=== PATIENT | female | born 1995 | race Caucasian/White ===

== ENCOUNTER 2019-08-30 09:04 | Outpatient (RCR) | payer OTHER, SELFPAY ==
[2019-08-30 09:48] LABS: Hematocrit 34.7 % (37.0-47.0); Hemoglobin 11.5 g/dL (12.0-15.0)
[2019-08-30 10:39] LABS: HIV 1/2 Ab P24 Ag Result Negative (Negative)
[2019-08-30] MEDS: RHO(D) IMMUNE GLOBULIN 300 MCG SYRINGE IM (13:41)
[2019-08-31 09:17] LABS: Rapid Plasma Reagin Non-Reactive (NonReactive)
== END 2019-11-28 23:59 | disposition home or self-care (01) ==
LOC: ANHLAB 09:04
PROVIDERS: Visit Provider Obstetrics & Gynecology
DX: Z36.89 Encounter for other specified antenatal screening (principal); Z29.13 Encounter for prophylactic Rho(D) immune globulin; O36.0990 Maternal care for other rhesus isoimmunization, unspecified trimester, not applicable or unspecified; Z3A.00 Weeks of gestation of pregnancy not specified
CPT/HCPCS: 36415; 36430; 85014; 85018; 86592; 86703; 86850; 90384; 96372; G0432; J2790

== ENCOUNTER 2019-11-01 06:51 | Observation (INO) | payer OTHER, MEDICAID, SELFPAY ==
[2019-11-01 07:30] VITALS: BMI 36.5
--- NOTE | 2019-11-19 11:10 | PM.OBTRLD ---
OB - Triage/Final Diagnosis Final Diagnosis (1) contractions: Code(s): O47.9 - False labor, unspecified Status: Acute
== END 2019-11-01 09:25 | disposition home or self-care (01) ==
PROVIDERS: Admitting Provider Obstetrics & Gynecology; PCP Family Medicine; Visit Provider Obstetrics & Gynecology
DX: O47.9 False labor, unspecified (principal); Z3A.00 Weeks of gestation of pregnancy not specified
CPT/HCPCS: G0378; G0379

== ENCOUNTER → 2021-05-26 00:53 | Outpatient (CLI) | payer BC, SELFPAY ==
[2021-05-26 21:23] LABS: SARS-CoV-2 RNA PCR Negative
== END ==
PROVIDERS: PCP Family Medicine; Visit Provider Obstetrics & Gynecology
DX: Z01.812 Encounter for preprocedural laboratory examination (principal); Z20.822 Contact with and (suspected) exposure to COVID-19
CPT/HCPCS: C9803; U0003; U0005

== ENCOUNTER 2021-05-30 00:35 | Day surgery (SDC) | payer BC, SELFPAY ==
[2021-05-25 17:06] VITALS: BMI 41.1
--- NOTE | 2021-05-29 17:15 | WPDANESEPP ---
Anes - Eval Pre Procedure Procedure: Operation Date: 05/30/21 07:30 Proposed Procedures p Diagnostic Laparoscopy - Alvina Tang MD Date/Time: 05/29/21 17:15 Pre Op Diagnosis: pelvic pain Patient Data Age: 25 Gender: F Height: 1.73 m Weight: 122.5 kg Allergies Allergy/AdvReac Type Severity Reaction Status Date / Time cucumber Allergy Mild Hives Verified 05/25/21 16:45 Hay Allergy Intermediate Hives / Uncoded 05/25/21 16:45 Red Face STRAW Allergy Intermediate HIVES Uncoded 05/25/21 16:45 Home Medications Medication Instructions Recorded Confirmed Type albuterol sulfate [Ventolin HFA] 2 puff INHALATION PRN PRN 05/25/21 05/25/21 History budesonide-formoterol [Symbicort] 2 inh INHALATION BID 05/25/21 05/25/21 History omeprazole 40 mg PO DAILY 05/25/21 05/25/21 History Patient hx anesthesia problems: none Family hx anesthesia problems: none PMFSH Past Medical History Medical History (Updated 05/29/21 @ 17:16 by Ketan Brady DO) Asthma no inhaler use in months GERD (gastroesophageal reflux disease) Surgical History Surgical History (Updated 05/29/21 @ 17:13 by Ketan Brady DO) History of x2 History of tubal ligation Hx of tonsillectomy with post op rebleed. Family History Family History (Updated 10/21/19 @ 14:37 by Halley Benavidez RN) Other Unknown family medical history Social History Social History (Updated 10/07/19 @ 09:05 by Erwin Reese) Smoking status: Never smoker Gender identity (if verbalized by the patient): Female Spiritual care concerns: No Exam Day of Procedure 05/29/21 17:15
[2021-05-30] VITALS (8 sets, daily range): BP systolic 104–124; BP diastolic 66–76; PULSE 67–103; RESP 9–21; TEMP 36.4–36.9; O2SAT 96–100
[2021-05-30] MEDS: ACETAMINOPHEN 500 MG TABLET 1000 MG PO (06:14)
[2021-05-30] MEDS: LACTATED RINGERS 1,000 ML 30 ML IV CONT (06:20)
[2021-05-30] MEDS: KETOROLAC 15 MG/ML VIAL (*BKC) IV PUSH (06:23)
--- NOTE | 2021-05-30 06:28 | WPDANESEPPF ---
Anes - Initial Pre Proc Eval Procedure: Operation Date: 05/30/21 07:30 Proposed Procedures p Diagnostic Laparoscopy - Alvina Tang MD Date/Time: 05/30/21 06:28 Surgeon: Alvina Tang MD Pre Op Diagnosis: pelvic pain Patient Data Age: 25 Gender: F Height: 1.73 m Weight: 121 kg Last Vital Signs Temp 36.9 C 05/30/21 06:10 Pulse 73 05/30/21 06:10 Resp 16 05/30/21 06:10 BP 124/71 05/30/21 06:10 Pulse Ox 99 05/30/21 06:10 Allergies Allergy/AdvReac Type Severity Reaction Status Date / Time cucumber Allergy Mild Hives Verified 05/30/21 06:11 Hay Allergy Intermediate Hives / Uncoded 05/30/21 06:11 Red Face STRAW Allergy Intermediate HIVES Uncoded 05/30/21 06:11 Home Medications Medication Instructions Recorded Confirmed Type albuterol sulfate [Ventolin HFA] 2 puff INHALATION PRN PRN 05/25/21 05/30/21 History budesonide-formoterol [Symbicort] 2 inh INHALATION BID 05/25/21 05/30/21 History omeprazole 40 mg PO DAILY 05/25/21 05/30/21 History Patient hx anesthesia problems: none Family hx anesthesia problems: none PMFSH Past Medical History Medical History (Updated 05/30/21 @ 06:28 by Alan Betancourt MD) Asthma no inhaler use in months GERD (gastroesophageal reflux disease) Morbid obesity Surgical History Surgical History (Updated 05/29/21 @ 17:13 by Ketan Brady DO) History of x2 History of tubal ligation Hx of tonsillectomy with post op rebleed. Family History Family History Other Unknown family medical history Social History Social History Smoking status: Never smoker Living arrangements: with family Gender identity (if verbalized by the patient): Female Spiritual care concerns: No Anes - Eval Final PreProcedure Day of Procedure 05/30/21 06:28 Patient weight: morbidly obese Heart: regular rate and rhythm Lungs: clear to auscultation Airway: Mallampati scale class II Neurological: alert and oriented Last oral intake: >/= 8 hours ASA classification: III Emergent: no Anesthetic plan: proceed Anesthesia type and monitoring: general ETT and standard monitoring Informed Consent: The patient's anesthetic plan and its attendant risks and benefits were discussed with the patient/family/POA. Questions were solicited and answers provided to the satisfaction of the patient/family/POA.
--- NOTE | 2021-05-30 07:25 | WPDHPUPDATE1 ---
History and Physical Update Update Date/Time: 05/30/21 07:25 History and Physical has been reviewed, including an updated exam of the patient. There are NO changes in the patient's condition. Risks, benefits, and alternatives have been discussed and questions answered. Patient agrees to proceed with procedure.
[2021-05-30] MEDS: fentaNYL CITRATE INJ (*CRX) 100 MCG/2 ML VIAL 25 MCG IV PUSH ×4 (09:01→09:23)
--- NOTE | 2021-05-30 09:03 | W.PM.PROC2 ---
Procedure Note - Detailed Date of Procedure 05/30/21 Pre-op Diagnosis pelvic pain Post-op Diagnosis same (Ovarian cysts, pelvic adhesions) Procedure Performed Diagnostic laparoscopy, adhesiolysis-30 minutes, bilateral ovarian cystectomy Surgeon Alvina Tang MD Anesthesia general Indications Pelvic pain Findings Adhesions from the uterus to the anterior pelvis. The entire surface the anterior uterus was involved, bilateral ovarian cysts. Description of Procedure The patient was taken to the operating room. She was prepped and draped in the dorsal lithotomy position after induction general anesthesia. A 5 mm incision was made with a scalpel on the abdominal skin in the left upper quadrant of the abdomen. A 5 mm trocar was inserted into the intra-abdominal cavity under direct visualization the scope. In the same fashion a 5 mm left lower quadrant trocar was inserted and a 5 mm infraumbilical trocar was inserted. The bladder was densely adherent to the anterior pelvis. 30 minutes of adhesiolysis was performed to separate the uterus from the anterior pelvis. Ovarian cysts were removed. The adhesiolysis in the resection ovarian cyst was performed with the cautery and blunt sharp dissection. An adhesion prevention barrier was placed over the uterus. Interceed. The pelvis was irrigated. The pneumoperitoneum was reduced. The trocars were removed. Skin was closed with subcuticular 4 micro. The patient's incisions were covered with Dermabond. She was taken recovery room in stable condition. Sponge lap and needle counts were correct x2. Estimated Blood Loss 30 Drains No Packing No Pathology yes Complications No immediate complications Condition stable Disposition same day
[2021-05-30] MEDS: oxyCODONE HCL (*CRX) 5 MG TAB IR PO (09:51)
[2021-05-30] MEDS: ONDANSETRON HCL ODT 4 MG TABLET PO (10:39)
== END 2021-05-30 10:39 | disposition home or self-care (01) ==
PROVIDERS: PCP Family Medicine; Visit Provider Obstetrics & Gynecology
PROC: (CPT 49320; principal; 2021-05-30 07:30)
DX: R10.2 Pelvic and perineal pain (principal); N83.02 Follicular cyst of left ovary; N83.01 Follicular cyst of right ovary; N73.6 Female pelvic peritoneal adhesions (postinfective); J45.909 Unspecified asthma, uncomplicated; K21.9 Gastro-esophageal reflux disease without esophagitis; E66.01 Morbid (severe) obesity due to excess calories; Z68.41 Body mass index [BMI] 40.0-44.9, adult; Z79.51 Long term (current) use of inhaled steroids
CPT/HCPCS: 58662; 88305; A9270; J1885; J2250; J2270; J3010; J7120

== ENCOUNTER 2025-04-20 08:08 | Outpatient (CLI) | payer OTHER, SELFPAY ==
--- NOTE | ~2025-04-20 | US_ITS ---
EXAMINATION TYPE: US breast RT limited COMPARISON: NONE REASON FOR STUDY: mass of right breast TECHNIQUE: Targeted sonographic evaluation of the right breast was performed. INTERPRETATION: No solid or cystic lesion identified in the region scanned. No sonographic abnormality seen in the re gion scanned. IMPRESSION: No sonographic abnormality seen in the region scanned. BI-RADS CATEGORY: BI-RADS 1: Negative Reviewed, dictated and finalized at location .
== END 2025-04-20 08:09 | disposition home or self-care (01) ==
PROVIDERS: PCP Nurse Practitioner; Visit Provider Nurse Practitioner
DX: N63.10 Unspecified lump in the right breast, unspecified quadrant (principal)
CPT/HCPCS: 76642